=== PATIENT | male | born 1985 | race Caucasian/White ===

== ENCOUNTER 2017-02-02 08:35 | Emergency (ER) | payer OTHER ==
[~2017-02-02] VITALS: Ht 177.8 cm; Wt 104.3 kg
[2017-02-02 08:42] VITALS: BP 162/95
[2017-02-02] MEDS ORDERED: KETOROLAC TROMETHAMINE 60 MG/2 ML INJ. IM ONE (09:00)
[2017-02-02] MEDS ORDERED: HYDR-971 PO (09:13)
--- NOTE | 2017-02-02 09:13 | PHYS DOC ---
Past Medical History Past Medical History: No Pertinent History Past Surgical History: Tonsillectomy, Other Additional Past Surgical Histo: ACL left knee, left hand Alcohol Use: None Drug Use: None Adult General Chief Complaint Chief Complaint: ELBOW PROBLEM HPI HPI Patient is a 31 year old male presenting to the emergency department for evaluation of left elbow pain that started this morning while he was doing pushups. He said that he felt a pop in his left elbow region and that he felt tingling in his pinky and ring finger. He says the pain is better and he can move his elbow but came to the emergency department for further evaluation. He is in good health and denies being on any blood thinners. Review of Systems Review of Systems Constitutional: Denies fever or chills [] Musculoskeletal: Denies back pain. + L elbow joint pain [] Integument: Denies lacerations or abrasions Neurologic: Denies headache, focal weakness or sensory changes [] Current Medications Current Medications Current Medications Medications (Trade) Dose Ordered Sig/Ranjeet Start Time Stop Time Status Last Admin Dose Admin Ketorolac Tromethamine (Toradol Im) 60 mg 1X ONCE 02/02/17 09:00 02/02/17 09:01 DC Allergies Allergies Allergies Coded Allergies Type Severity Reaction Last Updated Verified Penicillins Allergy Intermediate rash 05/19/14 Yes shellfish derived Allergy Intermediate rash 05/19/14 Yes Physical Exam Physical Exam Constitutional: Well developed, well nourished, no acute distress, non-toxic appearance. [] Neck: Normal range of motion, no tenderness, supple, no stridor. [] Skin: Warm, dry, no erythema, no rash. [] Extremities: Left elbow just superior to his medial epicondyle is slightly swollen but I can feel his triceps tendon insertion. It is slightly left prominent than the right. There is no weakness numbness or tingling in his left hand. He is able to flex his elbow against resistance with no difficulty and he is able to extend his elbow against resistance with good strength but he says it is quite painful to do so. Neurologic: Alert and oriented X 3, normal motor function, normal sensory function, no focal deficits noted. [] Current Patient Data Vital Signs Vital Signs Date Time Temp Pulse Resp B/P (MAP) Pulse Ox O2 Delivery O2 Flow Rate FiO2 02/02/17 08:42 98.3 93 20 97 Room Air 98.3 EKG EKG [] Radiology/Procedures Radiology/Procedures [] Course & Med Decision Making Course & Med Decision Making X-rays appear normal. He may have a partial tear of his triceps tendon or mages have some tendinitis. Either way he has good strength and a normal neurovascular exam now. We'll recommend rice NSAIDs PCP follow-up later this week as if he is not improving he may require an MRI. Patient aware and agreeable with plan and verbalized understanding of the above instructions. Dragon Disclaimer Dragon Disclaimer This electronic medical record was generated, in whole or in part, using a voice recognition dictation system. Departure Departure Impression: Primary Impression: Left elbow tendinitis Disposition: HOME, SELF-CARE Condition: GOOD Referrals: NO PCP (PCP) HALEY MENESES II, MD Patient Instructions: Tendon Injury Additional Instructions: Take 400 mg of ibuprofen every 6 hours and the [place] for breakthrough pain. Use the sling only for comfort and stay out of it as much as possible. No lifting over 10 pounds with the left arm until cleared by your primary care provider. Follow with your primary care provider or Friday to ensure improvement. Scripts Hydrocodone/Apap 5-325 (NORCO 5-325 TABLET) 1 Each Tablet 1 TAB PO PRN Q6HRS Y for PAIN, #14 TAB 0 Refills Prov: RUTH MERCHANT DO 02/02/17 RUTH MERCHANT DO Feb 02, 2017 09:13
--- NOTE | 2017-02-02 09:14 | RAD ---
Examination: 3 views of the left elbow History: History of left elbow pain Comparison: None available Findings: The alignment of the elbow joint grossly appears unremarkable. There is no acute fracture or dislocation identified. No evidence of elbow joint effusion visualized. Impression: No acute osseous findings .
== END 2017-02-02 09:26 | disposition home or self-care (01) ==
LOC: ER 08:35
DX: M77.9 Enthesopathy, unspecified (principal); Z88.0 Allergy status to penicillin; Z91.013 Allergy to seafood
CPT/HCPCS: 73080; 96372; 99284; J1885

== ENCOUNTER 2017-05-11 09:12 | Emergency (ER) | payer OTHER ==
[~2017-05-11] VITALS: Ht 180.3 cm; Wt 104.3 kg
[~2017-05-11 09:12] MED LIST: HYDR-971 PO
[2017-05-11 09:33] VITALS: BP 166/78
--- NOTE | 2017-05-11 09:40 | RAD ---
Three-view study of the left foot History: Heel pain after running 2 miles yesterday. Findings: No acute fracture or dislocation or osteolytic process is seen. No periosteal reaction is seen. An old accessory ossification center of the dorsal proximal aspect of the navicular bone is seen. No plantar spur of the calcaneus is seen. IMPRESSION: No acute fracture.
[2017-05-11] MEDS ORDERED: IBUP-1060 PO (09:50)
--- NOTE | 2017-05-11 09:50 | PHYS DOC ---
Past Medical History Past Medical History: No Pertinent History Past Surgical History: Tonsillectomy, Other Additional Past Surgical Histo: ACL left knee, left hand Alcohol Use: None Drug Use: None Adult General Chief Complaint Chief Complaint: FOOT INJURY [facility] HPI Patient is a 31 year old male presents to the emergency department stating that he ran a 2 mile course yesterday for PT training. He states this morning when he woke up he was having pain in his left lateral heel into the fifth motor tarsal area. He denies any falls trauma or injuries. Patient states he has not taken anything for pain or discomfort. He states as he had returned to work today he developed increased pain while walking and standing on the left foot. He denies any numbness or tingling into the toes. Review of Systems Review of Systems Constitutional: Denies fever or chills [] Eyes: Denies change in visual acuity, redness, or eye pain [] HENT: Denies nasal congestion or sore throat [] Respiratory: Denies cough or shortness of breath [] Cardiovascular: No additional information not addressed in HPI [] GI: Denies abdominal pain, nausea, vomiting, bloody stools or diarrhea [] : Denies dysuria or hematuria [] Musculoskeletal: Denies back pain. Left foot pain Integument: Denies rash or skin lesions [] Neurologic: Denies headache, focal weakness or sensory changes [] Endocrine: Denies polyuria or polydipsia [] Allergies Allergies Allergies Coded Allergies Type Severity Reaction Last Updated Verified Penicillins Allergy Intermediate rash 05/19/14 Yes shellfish derived Allergy Intermediate rash 05/19/14 Yes Physical Exam Physical Exam Constitutional: Well developed, well nourished, no acute distress, non-toxic appearance. [] HENT: Normocephalic, atraumatic, bilateral external ears normal, oropharynx moist, no oral exudates, nose normal. [] Eyes: PERRLA, EOMI, conjunctiva normal, no discharge. [] Neck: Normal range of motion, no tenderness, supple, no stridor. [] Cardiovascular:Heart rate regular rhythm Lungs & Thorax: No respiratory distress noted Skin: Warm, dry, no erythema, no rash. [] Extremities: Left lateral foot with no tenderness, no cyanosis, no clubbing, ROM intact, no edema. No redness warmth or swelling noted. Patient with Refill brisk less than 2 seconds. Peripheral pulses 2+. Neurologic: Alert and oriented X 3, normal motor function, normal sensory function, no focal deficits noted. [] Psychologic: Affect normal, judgement normal, mood normal. [] Current Patient Data Vital Signs Vital Signs Date Time Temp Pulse Resp B/P (MAP) Pulse Ox O2 Delivery O2 Flow Rate FiO2 05/11/17 09:33 98.0 100 18 100 Room Air 98.0 EKG EKG [] Radiology/Procedures Radiology/Procedures [][facility] [address] [place] [address] IMAGING REPORT Signed PATIENT: WANG DAVISON ACCOUNT: [id number] : 1985 LOCATION: ER AGE: 31 SEX: M EXAM STATUS: PRE ER ORD. PHYSICIAN: PABLO WAYNE APRN REASON: pain and discomfort PROCEDURE: FOOT LEFT 3V Three-view study of the left foot History: Heel pain after running 2 miles yesterday. Findings: No acute fracture or dislocation or osteolytic process is seen. No periosteal reaction is seen. An old accessory ossification center of the dorsal proximal aspect of the navicular bone is seen. No plantar spur of the calcaneus is seen. IMPRESSION: No acute fracture. DICTATED and SIGNED BY: ISABELLA VADLEZ MD DATE: 05/11/17 0937 CC: PABLO WAYNE APRN; NO PCP ~ Course & Med Decision Making Course & Med Decision Making Pertinent Labs and Imaging studies reviewed. (See chart for details) X-rays were negative for fractures. Patient will be placed in Tai wrap and a postop shoe with recommendations for ice packs on 20 minutes off 20 minutes several times a day elevation as much as possible. Patient was recommended to follow-up with orthopedic on her primary care physician. Patient was encouraged to use ibuprofen 800 mg every 8 hours with food stop taking few develop an upset stomach. Patient was provided with radiological results. All questions and concerns been answered at patient's bedside. Patient will be discharged home in stable condition patient agrees with discharge instructions treatment regimens and follow-up recommendations. [] Dragon Disclaimer Dragon Disclaimer This electronic medical record was generated, in whole or in part, using a voice recognition dictation system. Departure Departure Impression: Primary Impression: Sprain of left foot Disposition: HOME, SELF-CARE Condition: STABLE Referrals: NO PCP (PCP) HALEY MENESES II, MD Patient Instructions: Foot Sprain-Brief Additional Instructions: Your x-rays were negative for any fractures or abnormality. Tai wrap for the next 7-10 days. Wear the postop shoe for the next 5-7 days. Ice packs on 20 minutes off 20 minutes several times a day. Ibuprofen 800 mg every 8 hours with food stop taking few develop an upset stomach. Follow-up with your primary care physician or orthopedic within the next week. Return back to emergency prior signs symptoms of become worse. Scripts Ibuprofen (IBUPROFEN) 800 Mg Tablet 800 MG PO PRN Q6HRS Y for INFLAMMATION, #30 TAB Prov: PABLO WAYNE APRN 05/11/17 Problem Qualifiers Primary Impression: Sprain of left foot Encounter type: initial encounter Qualified Codes: S93.602A - Unspecified sprain of left foot, initial encounter PABLO WAYNE APRN May 11, 2017 09:50
[2017-05-11] MEDS ORDERED: IBUPROFEN 800 MG TABLET. PO ONE (10:00)
== END 2017-05-11 10:15 | disposition home or self-care (01) ==
LOC: ER 09:12
DX: S93.602A Unspecified sprain of left foot, initial encounter (principal); Z98.890 Other specified postprocedural states; Z88.0 Allergy status to penicillin; Z91.013 Allergy to seafood
CPT/HCPCS: 73630; 94640; 99284